=== PATIENT | male | born 2000 | race Two or more races ===

== ENCOUNTER 2023-08-12 10:58 | Emergency (ER) | payer OTHER, SELFPAY ==
[2023-08-12 11:17] VITALS: BP 122/65; PULSE 71; RESP 20; TEMP 36.5; O2SAT 99; BMI 22.8
--- NOTE | 2023-08-12 11:19 | ED.FEVER ---
HPI - Fever General Chief Complaint: Upper Respiratory Symptoms Stated Complaint: Fever Time Seen by Provider: 08/12/23 11:59 Related Data Allergies Allergy/AdvReac Type Severity Reaction Status Date / Time No Known Allergies Allergy Verified 08/12/23 11:26 Physical Exam Vital Signs: Vital Signs: Last Vital Signs Temp 97.7 F 08/12/23 11:17 Pulse 71 08/12/23 11:17 Resp 20 08/12/23 11:17 BP 122/65 08/12/23 11:17 Pulse Ox 99 08/12/23 11:17 O2 Del Method Room Air 08/12/23 11:17 BMI result Body Mass Index 22.8 Course Course Course Narrative: RME: 23 yo M w/Cook Islander Speaking (#[id number]) w/no sig PMHx presenting to the ED c/o fever, myalgias, right sided sore throat x4 days uvula midline, no exudates Viral testing, rapid strep ordered Full HPI, ROS and PE to be performed by primary ED provider. Medical Decision Making Lab Data Labs: Lab Results 08/12/23 Range/Units 11:42 Influenza Type A (PCR) NEGATIVE (Negative) Influenza Type B (PCR) NEGATIVE (Negative) RSV RNA Qual (PCR) NEGATIVE (Negative) SARS-CoV-2 RNA (RT-PCR) POSITIVE A (Negative) S. pyogenes GrpA PRESTON Negative (Negative) Discharge Plan Discharge Clinical Impression: COVID-19 Patient Disposition: Home, Self-Care Instructions: COVID-19 (Coronavirus Disease 2019) (ED) Additional Instructions: Take your medications as prescribed. If you were prescribed antibiotics today, it is important that you take your medication to their entirety, do not skip any doses, do not finish them early. Today you tested positive for COVID-19. Take Ibuprofen or Tylenol as needed for fevers or body aches. Quarantine for 5 days and ensure you wear a mask. After 5 days you should wear a mask for 5 days after that. Practice social distancing and good hand hygiene. Drink plenty of fluids. Follow-up with your primary care provider this week. Return to the emergency department with new or worsening symptoms. In case of emergency call 911 You can purchase a pulse oximeter from your local pharmacy or grocery store, and monitor your oxygen saturation if it goes below 94% you should return to the emergency department for further evaluation. Referrals: Physician,None [Primary Care Provider] - 2 days Stand Alone Forms: Work/School Release
[2023-08-12 12:33] LABS: IDNOW Serial# 08D9AD1C; Strep A Nucleic Acid Negative (Negative)
[2023-08-12 12:47] LABS: Influenza A PCR NEGATIVE (Negative); Influenza B PCR NEGATIVE (Negative); Resp Syncy Virus RNA Qual PCR NEGATIVE (Negative); SARS COV2 PCR INHOUSE POSITIVE (Negative)
--- NOTE | 2023-08-12 12:57 | ED.GENADULT ---
HPI - General Adult General Chief complaint: Upper Respiratory Symptoms Stated complaint: Fever Time Seen by Provider: 08/12/23 11:59 Source: patient Mode of arrival: ambulatory Limitations: other (danish special trackwork blacksmith used ) History of Present Illness HPI narrative: ?This is [id number] male no pmhx presenting to the emergency department with complaints of fatigue, malaise, sore throat, myalgias,, diffuse headache (without visual disturbances, trauma, dizziness), dry cough x4 days progressively worsening.? ? Denies chest pain, shortness of breath, vomiting, diarrhea, abdominal pain, weakness, dizziness at this time. Vaccinated against COVID. No sick contacts Related Data Allergies Allergy/AdvReac Type Severity Reaction Status Date / Time No Known Allergies Allergy Verified 08/12/23 11:26 Review of Systems Review of Systems: Yes all other systems are reviewed and are negative PMFSH Past Medical History Attestation statement: The following information was validated with the patient. Source: old records reviewed and nursing notes reviewed Onset Date is defined in the Problem List Problems that require an onset date and time if occurred within 24 hrs of arrival to the ED Aortic Dissection and Rupture; Neurologic impairment; Cardiopulmonary Arrest; Endotracheal Intubation; Insertion or Replacement of Mechanical Circulatory Assist Device Physical Exam ED Vital Signs: Vital Signs - 24 hr 08/12/23 11:17 Temperature 97.7 F Pulse Rate 71 Respiratory Rate 20 Blood Pressure 122/65 Pulse Oximetry 99 Oxygen Delivery Method Room Air BMI result Body Mass Index 22.8 Vital signs stable Appearance: Alert.? Oriented X3.? No acute distress.? Head: Normocephalic, atraumatic, no step-offs or deformities Eyes: Pupils equal, round and reactive to light.? ENT: Pharynx normal.? Neck: Normal inspection.? Neck supple.? CVS: Normal heart rate and rhythm.? Pulses normal.? Respiratory: No respiratory distress.? Breath sounds normal.? Abdomen: Soft and nontender.? Skin: Skin warm and dry.? Normal skin color.? Normal skin turgor.? Extremities: No lower extremity edema.? No calf ttp. 5/5 strength to bilateral upper and lower extremities Neuro: Oriented X 3.? No motor deficit.? No sensory deficit. CN 2-12 intact Course Reevaluation(s) Reevaluation #1: Patient positive for COVID-19. Likely contributing to patient's symptoms. Will discharge with supportive measures. Hatian special trackwork blacksmith use at time of discharge to go over discharge instructions patient verbalizes understanding. Educated patient on diagnosis and treatment plan, answered all question, patient verbalizes understanding. At this time patient will be discharged home, advised to return with new or worsening symptoms. Educated on worrisome signs and symptoms and when to return. At this time I feel comfortable discharge home. Time: 12:58 Medical Decision Making Medical Decision Making [facility] Narrative: 23 year old male presents with viral symptoms for the past 4 days. ??Physical examination benign ?This is likely viral flu versus COVID versus RSV versus bronchitis.? Unlikely pulmonary embolism, pneumonia, ACS, retropharyngeal abscess, peritonsillar abscess, epiglottitis, intracranial hemorrhage, stroke, posterior stroke, meningitis or encephalitis.? No signs of acute respiratory distress ?Plan viral testing Differential Diagnosis Differential Diagnoses: The differential diagnosis associated with the presentation includes ?This is likely viral flu versus COVID versus RSV versus bronchitis.? Unlikely pulmonary embolism, pneumonia, ACS, retropharyngeal abscess, peritonsillar abscess, epiglottitis, intracranial hemorrhage, stroke, posterior stroke, meningitis or encephalitis.? No signs of acute respiratory distress Admission/Observation Consideration of admission/observation: Escalation of care including admission/observation considered [facility] Lab Data [facility] Lab Attestation statement: I reviewed the patient's lab results. Labs: Lab Results 08/12/23 Range/Units 11:42 Influenza Type A (PCR) NEGATIVE (Negative) Influenza Type B (PCR) NEGATIVE (Negative) RSV RNA Qual (PCR) NEGATIVE (Negative) SARS-CoV-2 RNA (RT-PCR) POSITIVE A (Negative) S. pyogenes GrpA PRESTON Negative (Negative) Discharge Plan Discharge Clinical Impression: COVID-19 Patient Disposition: Home, Self-Care Instructions: COVID-19 (Coronavirus Disease 2019) (ED) Additional Instructions: Take your medications as prescribed. If you were prescribed antibiotics today, it is important that you take your medication to their entirety, do not skip any doses, do not finish them early. Today you tested positive for COVID-19. Take Ibuprofen or Tylenol as needed for fevers or body aches. Quarantine for 5 days and ensure you wear a mask. After 5 days you should wear a mask for 5 days after that. Practice social distancing and good hand hygiene. Drink plenty of fluids. Follow-up with your primary care provider this week. Return to the emergency department with new or worsening symptoms. In case of emergency call 911 You can purchase a pulse oximeter from your local pharmacy or grocery store, and monitor your oxygen saturation if it goes below 94% you should return to the emergency department for further evaluation. Referrals: Physician,None [Primary Care Provider] - 2 days Stand Alone Forms: Work/School Release
== END 2023-08-12 13:17 | disposition home or self-care (01) ==
LOC: HO.ED 13:11
PROVIDERS: Physician Assistant; Emergency Provider Emergency Medicine
DX: U07.1 COVID-19 (principal); J02.9 Acute pharyngitis, unspecified; R53.83 Other fatigue; R51.9 Headache, unspecified; R05.9 Cough, unspecified
CPT/HCPCS: 0241U; 87651; 99282; 99283

== ENCOUNTER 2023-08-21 11:14 | Emergency (ER) | payer OTHER, SELFPAY ==
--- NOTE | 2023-08-21 11:46 | ED_ITS ---
HPI - General Adult General Chief complaint: Upper Respiratory Symptoms Stated complaint: fever, cough Time Seen by Provider: 08/21/23 11:46 Source: patient and examination proctor Mode of arrival: ambulatory Limitations: language barrier History of Present Illness HPI narrative: Patient is a 23 year old assigned male at with no reported medical history presenting to the emergency department today for a work note. Patient states that he was recently diagnosed with COVID-19 and now he needs a note to go back to work. Patient denies any dizziness, lightheadedness, abdominal pain, nausea, vomiting, fever, chills, blurry vision, double vision, loss of vision, chest pain, difficulty breathing, shortness of breath, back pain, night sweats, pain with urination, increased urinary frequency, increased urinary urgency, blood in his urine or stool, syncope or a near syncopal episode, recent trauma or falls, bowel incontinence, bladder incontinence, bowel retention, bladder retention, or any other complaints at this time. Relieving factors: none Exacerbating factors: none Associated symptoms: denies other symptoms Treatments prior to arrival: none Related Data Allergies Allergy/AdvReac Type Severity Reaction Status Date / Time No Known Allergies Allergy Verified 08/21/23 11:56 Review of Systems Constitutional: Constitutional: Reports no additional constitutional complaints, Denies chills, Denies fever(s) and Denies night sweats Eyes: Eyes: Reports no additional eye complaints, Denies blurry vision, Denies change in vision, Denies diplopia, Denies eye discharge, Denies loss of vision and Denies eye pain ENT: Denies dizziness Cardiovascular: Cardiovascular: Reports no additional cardiovascular complaints, Denies chest pain, Denies lightheadedness, Denies Loss of Consciousness and Denies dyspnea Respiratory: Respiratory: Reports no additional respiratory complaints and Denies dyspnea Gastrointestinal: Gastrointestinal: Reports no additional gastrointestinal complaints, Denies abdominal pain, Denies melena, Denies hematochezia, Denies change in bowel habits and Denies change in stool character Genitourinary: Genitourinary: Reports no additional male genitourinary complaints, Denies hematuria, Denies oliguria, Denies difficulty urinating, Denies dysuria, Denies urinary frequency, Denies urinary hesitancy, Denies urinary incontinence and Denies urinary urgency Musculoskeletal: Musculoskeletal: Reports no additional musculoskeletal complaints, Denies numbness and Denies tingling Neurologic: Denies dizziness, Denies loss of vision, Denies numbness and Denies tingling Psychiatric: Psychiatric: Reports no additional psychiatric complaints Endocrine: Endocrine: Reports no additional endocrine complaints Hematologic/Lymphatic: Hematologic/Lymphatic: Reports no additional hematologic/lymphatic complaints Allergic/Immunologic: Allergic/Immunologic: Reports no additional allergic/immunologic complaints PMFSH Past Medical History Attestation statement: The following information was validated with the patient. Source: old records reviewed and nursing notes reviewed Onset Date is defined in the Problem List Problems that require an onset date and time if occurred within 24 hrs of arrival to the ED Aortic Dissection and Rupture; Neurologic impairment; Cardiopulmonary Arrest; Endotracheal Intubation; Insertion or Replacement of Mechanical Circulatory Assist Device Social History Social History Advance Directives: No Advance Directives Information Provided: No Physical Exam ED Vital Signs: Vital Signs - 24 hr 08/21/23 11:56 Temperature 98.3 F Pulse Rate 86 Respiratory Rate 86 H Blood Pressure 105/59 L Pulse Oximetry 99 Oxygen Delivery Method Room Air BMI result Body Mass Index 24.4 Const General: cooperative, no acute distress, alert and awake Nutritional Appearance: well nourished Orientation/consciousness: patient oriented x3 Limitations: no limitations HENMT Head: Yes normal to inspection and Yes atraumatic Ears: hearing grossly normal bilaterally and external ears normal General nose exam: Normal external nose present, no nasal discharge noted and no epistaxis Face and sinus: Yes normal facial exam, No abrasion and No laceration Mouth: Normal oral and palatal mucosa present, no drooling and no muffled voice Eyes General: appearance normal, both eyes and all related structures Periorbital: periorbital findings normal Eyelids: Yes eyelids normal Conjunctivae: conjunctivae normal Pupils: Equal, round and reactive pupils present EOM: EOMs intact bilaterally Neck Neck: Yes normal visual inspection, Yes full ROM and Yes no lymphadenopathy Chest Chest palpation & inspection: normal inspection of the chest Resp Effort & Inspection: normal respiratory effort and able to speak in complete sentences GI Inspection: Yes normal to inspection Neuro General: patient oriented x3 and moves all extremities Cranial nerves: Yes Equal, round and reactive pupils present Cognition (Neuro): normal cognition Motor exam (neuro): 5/5 motor strength present throughout Sensory Exam: Normal double simultaneous stimulation for sensation Coordination: [id number] test normal Extrem General: Yes normal to inspection, Yes full ROM and Yes capillary refill normal Psych Appearance: grossly normal Mental Status: mental status grossly normal Affect: normal affect Attitude: cooperative Thought process: Normal thought process present Thought content: Normal thought content present Insight: Good insight present (Psych) Medical Decision Making Medical Decision Making MDM Narrative: Patient is a 23 year old assigned male at with no reported medical history presenting to the emergency department today for a work note. Patient's physical exam was unremarkable. I explained my physical exam findings to the patient. I answered all questions asked by the patient. I stressed the importance of the patient taking his medication as prescribed. I stressed the importance of the patient following up with his primary care provider. I stressed the importance of the patient returning to the emergency department immediately if his symptoms were to worsen or if he were to develop any dizziness, shortness of breath, difficulty breathing, chest pain, blurry vision, loss of vision, nausea, vomiting, abdominal pain, fever, chills, back pain, or any other complaints. Patient verbalized agreement and understanding with this treatment plan and discharge. Differential Diagnosis Differential Diagnoses: The differential diagnosis associated with the presentation includes Need for work note COVID-19 Discharge Plan Discharge Clinical Impression: COVID-19 Patient Disposition: Home, Self-Care Instructions: COVID-19 (Coronavirus Disease 2019) (ED) Additional Instructions: Follow up with your primary care provider. Return to the emergency department immediately if you develop any dizziness, shortness of breath, difficulty breathing, chest pain, blurry vision, loss of vision, nausea, vomiting, abdominal pain, fever, chills, back pain, or any other complaints. Swiv ak founis? swen prensipal ou a. Retounen caridad morenodeborah kebede imedyatman si ou devlope nenp?t v?tij, souf kout, difikilte lenin respire, doul? caridad pwatrin, vizyon twoub, p?t vizyon, k? plen, vomisman, doul? nan vant, lafy?v, frison, doul? nan do, oswa nenp?t l?t plent. Referrals: [facility] [facility] [place] Group] (Call to establish and follow up with a primary care provider. If you already have a primary care provider, please follow up with them. Rele lenin etabli ak swiv ak yon founis? swen prensipal. Si w carlton gen yon founis? swen prensipal, tanpri swiv li.) [facility] [place] [facility] Willy [Provider Group] (Call to establish and follow up with a primary care provider. If you already have a primary care provider, please follow up with them. Rele lenin etabli ak swiv ak yon founis? swen prensipal. Si w carlton gen yon founis? swen prensipal, tanpri swiv li.) [facility] [place] [facility]Ellie [Provider Group] (Call to establish and follow up with a primary care provider. If you already h ave a primary care provider, please follow up with them. Rele lenin etabli ak swiv ak yon founis? swen prensipal. Si w carlton gen yon founis? swen prensipal, tanpri swiv li.) Stand Alone Forms: Work/School Release Interventions: ED Discharge Assessment Last Done: 08/21/23 12:03 Discharge Date/Time: 08/21/23 12:08 Print Language: Wallisian
[2023-08-21 11:56] VITALS: BP 105/59; PULSE 86; RESP 86; TEMP 36.8; O2SAT 99; BMI 24.4
== END 2023-08-21 12:08 | disposition home or self-care (01) ==
LOC: HO.ED 12:05
PROVIDERS: Emergency Provider Emergency Medicine
DX: U07.1 COVID-19 (principal); R50.9 Fever, unspecified; R05.9 Cough, unspecified
CPT/HCPCS: 99282